=== PATIENT | female | born 1950 | race Caucasian/White ===

== ENCOUNTER 2018-10-13 18:54 | Observation (INO) ==
[2018-10-13] MEDS ORDERED: Ondansetron 4 MG/2 ML VIAL IVP ONE (18:56)
[2018-10-13] MEDS ORDERED: *HR* HYDROmorphone (PF) 1 MG/ML SYRINGE IVP ONE (18:56)
--- NOTE | 2018-10-13 18:58 | Emergency Department Note ---
Disposition Clinical Impression: History of fall, Inability to ambulate due to hip Head contusion Qualifiers: Encounter type: initial encounter Contusion of head detail: scalp Qualified Code(s): S00.03XA - Contusion of scalp, initial encounter Sprain of wrist, right Qualifiers: Encounter type: initial encounter Qualified Code(s): S63.501A - Unspecified sprain of right wrist, initial encounter Contusion of right hip Qualifiers: Encounter type: initial encounter Qualified Code(s): S70.01XA - Contusion of right hip, initial encounter Disposition: Admitted As Inpatient Condition: Fair Referrals: Surya Mueller DO [Primary Care Provider] - () Forms: ED Satisfaction Letter Time of Disposition: 20:50 Fall HPI - General Chief Complaint: ED Extremity Injury, Lower Stated Complaint: RT HIP PAIN/RT EYE PAIN S/P FALL Time Seen by Provider: 10/13/18 18:55 Source: patient, EMS Mode of arrival: EMS Limitations: no limitations Nursing Notes Reviewed: Yes Vital Signs Reviewed: Yes - History of Present Illness HPI Narrative: Patient relates she was Monday and a lump might banquet this evening when she stumbled and fell. Forward and caught herself on her right arm and landed on her right hip. She did hit her forehead and had a question of a couple seconds of loss of consciousness. Squad was called and she was transported on backboard for ease of motion. She denied any pain to her neck or back. They did apply a cervical collar. She is now to the hospital states she had some head pain but none previous. This is frontal. She denies visual changes, nausea or vomiting. She still denies any midline neck or back pain. She denies chest pain or shortness of breath or abdominal pain, nausea or vomiting. She has no pain or difficulty with motion of the upper extremities but has pain in the right wrist. She denies numbness or tingling to the fingers of the right hand or difficulty with motion of the digits. She has had pain in the right hip primarily. This was noted to be slightly externally rotated but not shortened by EMS. He motion of the right hip produces severe pain. She denies any pain to the knees or ankles. She denies previous hip injury. She states she has had both knees replaced. She denies any other reason for fall other than stumbling. She has not had history of syncope, seizure or any preceding chest pain or palpitations. Pt Subjective Complaint: fall Onset (ago): Just [employer] Fall From: standing Fall Witnessed: yes Loss of Consciousness: unsure, second(s) Prolonged Down Time?: no Symptoms Prior to Fall: none Context: tripped/slipped Location of injury: head Location of injury - extremities: Right: forearm, hip Severity: moderate Quality: dull, aching Associated symptoms (after fall): Reports: headache, unable to walk. Denies: neck pain, numbness, weakness, chest pain, shortness of breath, abdominal pain, hematuria, lightheaded, vertigo, confusion - Related Data Home Medications Medication Instructions Recorded Confirmed Lisinopril [Zestril] 10 mg PO DAILY 06/30/16 10/13/18 Aspirin [Adult Aspirin] 81 mg PO DAILY 10/13/18 10/13/18 Atorvastatin [Lipitor] 40 mg PO HS 10/13/18 10/13/18 Metformin HCl [Glucophage] 1,000 mg PO BID 10/13/18 10/13/18 Pioglitazone [Actos] 15 mg PO DAILY 10/13/18 10/13/18 glipiZIDE [Glipizide] 10 mg PO DAILY 10/13/18 10/13/18 hydroCHLOROthiazide 25 mg PO DAILY 10/13/18 10/13/18 [Hydrochlorothiazide] Previous Rx's Medication Instructions Recorded HYDROcodone/Acet 5/325 mg [[place] 1 tab PO Q6H PRN 2 Days #7 tab 10/13/18 5-325 mg] Naproxen [Naprosyn] 500 mg PO BID #14 tablet 10/13/18 Allergies Allergy/AdvReac Type Severity Reaction Status Date / Time secobarbital [From [place]] AdvReac Hives Verified 10/13/18 18:55 All systems ED: reviewed and negative except as stated. Fall PMH - Past Medical History Medical history: Reports: diabetes, hypertension Surgical history: Reports: , cholecystectomy, knee replacement (Bilateral total), orthopedic, other (Back surgery) Psychiatric history: Reports: no psych history - Social History Smoking Status: Never smoker Alcohol use: Reports: none Drug use: Reports: none Physical Exam - General Limitations: no limitations General appearance: alert, in no apparent distress - Head Head exam: other (Small contusion on the right side of the forehead.) - Eye Eye exam: Present: normal appearance, PERRL, EOMI. Absent: scleral icterus, conjunctival injection - ENT ENT exam: normal exam, normal oropharynx, mucous membranes moist, TM's normal bilaterally - Neck Neck exam: Present: normal inspection, full ROM, trachea midline, other (Collar has been removed with no pain on exam or pain with motion.). Absent: tenderness, lymphadenopathy - Chest Chest inspection: Present: normal inspection, symmetric chest wall rise - Respiratory Respiratory exam: Present: normal lung sounds bilaterally. Absent: respiratory distress, wheezes, prolonged expiratory phase - Cardiovascular Cardiovascular exam: Present: regular rate, normal rhythm, normal heart sounds. Absent: tachycardia - Abdominal Exam Abdominal exam: Present: soft, Non-Tender, normal bowel sounds. Absent: tenderness, distention, guarding, rebound, rigidity - Expanded Upper Extremity Exam Shoulder exam: Present: normal inspection, full ROM. Absent: tenderness, swelling Arm exam: Present: normal inspection, full ROM Elbow exam: Present: normal inspection, full ROM. Absent: tenderness, dislocation Forearm/Wrist exam: Present: other (Patient's right wrist has no evidence swelling but she has tenderness on compression at the wrist. She reports some soreness with motion of the wrist but she is moving it spontaneously.) Hand exam: Present: normal inspection, full ROM. Absent: tenderness, swelling Vascular exam: Normal: capillary refill, radial pulse - Expanded Lower Extremity Exam Hip/Pelvis exam: Present: tenderness (Lateral aspect of the right hip.), external rotation, pelvis stable. Absent: deformity, dislocation, shortening Knee exam: Present: normal inspection, full ROM, knee extension intact. Absent: tenderness, swelling Ankle exam: Present: normal inspection, full ROM. Absent: tenderness, swelling Foot/toe exam: Present: normal inspection, full ROM. Absent: tenderness, swelling Neurovascular/Tendon exam: Absent: motor deficit, sensory deficit, tendon defic it Gait: not tested/not observed - Back Exam Back exam: Present: normal inspection, full ROM. Absent: tenderness, CVA tenderness (R), CVA tenderness (L), vertebral tenderness - Neurological Exam Neurological exam: Present: alert, oriented X3, CN II-XII intact. Absent: motor sensory deficit - Psychiatric Psychiatric exam: Present: normal affect, normal mood - Skin Skin exam: Present: warm, dry, intact, normal color. Absent: diaphoresis, pallor Course Course Narrative: 1899: Patient was examined immediately upon arrival. She clinically has a likely right hip fracture. Given the fall with head contusion and possible loss of consciousness as well as possible impending surgery, CT head has been ordered. As she is in the scanner we will also obtain a CT across her pelvis. A preoperative chest x-ray and a right wrist film of been ordered. Labs for anticipated preoperative clearance and EKG have been ordered. IV will be established and Dilaudid and Zofran have been written for her pain. 2009: Pulmonary imaging results are discussed with the patient. I do not see that she has sustained an intracranial injury, wrist fracture or hip fracture. On reexamination she is improved with the fluids and pain medicine. I am now able to internally and externally rotate her like with only minor pain. She remains with pain on direct palpation over the lateral aspect of the right hip without other pain over the pelvis or pubic rami. She is developing more bruising from the right eyebrow onto the right upper eyelid. Patient is anxious to go home if the radiology readings concur with my own. She will need to rest, ice and have medicines for inflammation and pain. We are awaiting the official radiology readings at this time. 2019: With return of all imaging, care is discussed with the patient and family. She states that she is feeling better with the pain medicine is not think that she will need crutches. I advised her that we will have to see her sit, stand and walk and determine a safe way of getting her home prior to discharge. She is anxious to get home. 2029: The patient has been able to assist, rotate to a sitting position and stand and walk with assistance with significant difficulty. This is discussed with the patient and family and I do not feel confident that she will do well at home. She is willing to stay for observation to see if her pain and mobility will improve prior to discharge. 2041: Care has been discussed with Dr. Armstrong and he is given verbal orders for the patient's inpatient observation. Vital Signs Temperature 98.2 F 10/13/18 18:56 Pulse Rate 75 10/13/18 18:56 Respiratory Rate 20 10/13/18 18:56 Blood Pressure 141/63 10/13/18 18:56 O2 Sat by Pulse Oximetry 100 10/13/18 18:56 Temperature 98.2 F 10/13/18 18:56 Pulse Rate 78 10/13/18 20:00 Respiratory Rate 18 10/13/18 20:00 Blood Pressure 132/78 10/13/18 20:00 O2 Sat by Pulse Oximetry 98 10/13/18 20:00 Oxygen Delivery Oxygen Delivery Room Air Fall - Differential Diagnosis Likely: syncope, traumatic injury - Medical Records Medical records reviewed: Yes I reviewed the patient's medical records. - Lab Data Lab results reviewed: Yes I reviewed the patient's lab results. Result diagrams: 10/13/18 19:11 10/13/18 19:11 Lab Results 10/13/18 10/13/18 10/13/18 Range/Units 19:11 19:11 19:11 WBC 8.5 (4.3-11.1) K/mcL RBC 4.07 (3.82-4.97) M/mcL Hgb 12.0 (11.5-15.4) g/dL Hct 36.9 (35.3-44.9) % MCV 90.7 (83.0-100.0) fL MCH 29.5 (28.0-33.3) pg MCHC 32.5 (31.6-35.5) g/dL RDW 13.0 (11.5-14.5) % Plt Count 209 (140-400) K/mcL MPV 11.6 (9.4-12.4) fL Immature Gran % 0.4 (0-4) % Seg Neutrophils % 67.9 % Lymphocytes % 19.0 % Monocytes % 9.5 % Eosinophils % 2.6 % Basophils % 0.6 % Neutrophils # 5.8 (1.6-8.9) K/mcL Lymphocytes # 1.6 (0.6-4.6) K/mcL Monocytes # 0.8 (0.0-1.3) K/mcL Eosinophils # 0.2 (0.0-0.6) K/mcL Basophils # 0.1 (0.0-0.2) K/mcL PT 12.1 (9.4-12.1) Seconds INR 1.1 APTT 39.5 H (26.0-36.0) Seconds Sodium 138 (136-145) mEq/L Potassium 3.7 (3.5-5.1) mEq/L Chloride 102 (98-107) mEq/L Carbon Dioxide 26 (23-29) mEq/L BUN 27 H (8-23) mg/dL Creatinine 0.93 (0.60-1.20) mg/dL Est GFR ( Amer) > 60 (> 60) Est GFR (Non-Af Amer) 60 (> 60) BUN/Creatinine Ratio 29 H (6-26) Glucose 122 H (70-105) mg/dL Calculated Osmolality 292 (280-300) Calcium 9.4 (8.6-10.3) mg/dL Troponin I < 0.03 (< 0.04) ng/mL - Radiology Data Radiology results reviewed: Yes I reviewed the patient's radiology results. Single view chest x-ray is performed. This does not demonstrate evidence for i nfiltrate, effusion, pneumothorax, foreign body or heart failure. The cardiac silhouette is normal. I do not see abnormality to the osseous structures of the chest. This is on my interpretation. Three-view x-rays obtained of the right wrist. This does not demonstrate evidence for fracture, effusion or joint space misalignment. I do not see evidence for soft tissue foreign body or air. This is on my interpretation. CT head is performed. This is reviewed on bone and soft tissue windows. There is no evidence for acute intracranial bleed, shift, mass or edema. Mastoids and sinuses appear normal. There is no fracture evident. This is on my interpretation. CT is performed of the pelvis. This does not demonstrate evidence for pelvic, sacral or hip fracture on my interpretation. There is no posterior labral fracture or subluxation. No structural abnormality is seen to explain this patient's severe right hip pain with motion. This is on my interpretation. Impressions Chest X-Ray 10/13/18 18:56 IMPRESSION: 1. No acute pulmonary disease. 2. Calcific atherosclerosis aorta. 3. Cardiomegaly. D/ / David Jain / David Jain Interpreting Provider: David aJin Head CT 10/13/18 18:56 IMPRESSION: No acute intracranial abnormality. Right forehead scalp hematoma. No underlying fracture. D/ / Meli Brewer MD / Meli Brewer MD Interpreting Provider: Meli Brewer MD Pelvis CT 10/13/18 18:[address]: [address] evidence of acute osseous abnormality. 2. The degenerative changes lower lumbar spine and SI joints. 3. No CT evidence of acute intrapelvic process. D/ / David Jain / David Jain Interpreting Provider: David Jain Wrist X-Ray 10/13/18 18:56 IMPRESSION: 1. No acute osseous abnormality of the right wrist. 2. No soft tissue injury identified. D/ / Meli Brewer MD / Meli Brewer MD Interpreting Provider: Meli Brewer MD - EKG Data EKG attestation: Yes I reviewed and interpreted this EKG. EKG shows normal: sinus rhythm, axis, intervals, QRS complexes, ST-T waves Rate: normal (73) Interpretation: no acute changes, normal EKG
[2018-10-13] MEDS ORDERED: 0.9 % Sodium Chloride 1,000 ML IVC SCH (19:00)
[2018-10-13 19:17] LABS: Basophils # 0.1 K/mcL (0.0-0.2); Basophils % 0.6 %; Eosinophils # 0.2 K/mcL (0.0-0.6); Eosinophils % 2.6 %; Hematocrit 36.9 % (35.3-44.9); Immature Granulocytes % 0.4 % (0-4); Lymphocytes # 1.6 K/mcL (0.6-4.6); Mean Corpuscular HGB Conc 32.5 g/dL (31.6-35.5); Mean Corpuscular Hemoglobin 29.5 pg (28.0-33.3); Mean Corpuscular Volume 90.7 fL (83.0-100.0); Mean Platelet Volume 11.6 fL (9.4-12.4); Monocytes # 0.8 K/mcL (0.0-1.3); Monocytes % 9.5 %; Neutrophils # 5.8 K/mcL (1.6-8.9); Platelet Count 209 K/mcL (140-400); Red Blood Count 4.07 M/mcL (3.82-4.97); Segmented Neutrophils % 67.9 %; White Blood Count 8.5 K/mcL (4.3-11.1)
[2018-10-13 19:25] LABS: INR 1.1; Prothrombin Time 12.1 Seconds (9.4-12.1)
[2018-10-13 19:28] LABS: Activated Partial Thrombo Time 39.5 Seconds (26.0-36.0)
[2018-10-13 19:38] LABS: Troponin I < 0.03 ng/mL (< 0.04)
[2018-10-13 19:39] LABS: BUN/Creatinine Ratio 29 (6-26); Blood Urea Nitrogen 27 mg/dL (8-23); Calcium 9.4 mg/dL (8.6-10.3); Carbon Dioxide 26 mEq/L (23-29); Chloride 102 mEq/L (98-107); Glucose 122 mg/dL (70-105); Osmolality,Calculated 292 (280-300); Potassium 3.7 mEq/L (3.5-5.1); Sodium 138 mEq/L (136-145); eGFR For African Americans > 60 (> 60); eGFR For Non-African Americans 60 (> 60)
[2018-10-13] MEDS ORDERED: MOM Conc 10 ML UD.LIQ PO PRN (21:55)
[2018-10-13] MEDS ORDERED: *HR* Dextrose 50 % in Water (Syg) 50 ML SYRINGE IVP PRN (21:55)
[2018-10-13] MEDS ORDERED: Ibuprofen 400 MG TABLET PO PRN (21:55)
[2018-10-13] MEDS ORDERED: Mag Hydrox/Al Hydrox/Simeth 30 ML UDC PO PRN (21:55)
[2018-10-13] MEDS ORDERED: Naloxone 0.4 MG/ML INJ IVP PRN (21:55)
[2018-10-13] MEDS ORDERED: *HR* HYDROcodone/Acet 5/325 mg TABLET PO PRN (21:55)
[2018-10-13] MEDS ORDERED: D5% in Water 1,000 ML IVC PRN (21:55)
[2018-10-13] MEDS ORDERED: Ondansetron ODT 4 MG TAB.RAPDIS SL PRN (21:55)
[2018-10-13] MEDS ORDERED: Dextrose Gel 15 GM/37.5 ML TUBE PO PRN ×2 (21:55)
[2018-10-13] MEDS ORDERED: Acetaminophen 325 MG TABLET PO PRN (21:55)
[2018-10-13] MEDS: *HR* Metformin 500 MG TABLET PO SCH (22:33)
[2018-10-13] MEDS: 0.9 % Sodium Chloride 1,000 ML IVC SCH (22:47)
[2018-10-14] MEDS: 0.9 % Sodium Chloride 1,000 ML IVC SCH (06:34)
[2018-10-14] MEDS ORDERED: *HR* GlipiZIDE XL (24 HR) 10 MG TABLET PO SCH (08:00)
[2018-10-14] MEDS: *HR* Metformin 500 MG TABLET PO SCH (08:56)
[2018-10-14] MEDS: Insulin LISPRO 300 UNITS/3 ML VIAL SQ SCH ×2 (08:57→11:56)
[2018-10-14] MEDS ORDERED: hydroCHLOROthiazide 25 MG TABLET PO SCH (09:00)
[2018-10-14] MEDS ORDERED: Aspirin Enteric Coated 81 MG Tablet PO SCH (09:00)
[2018-10-14] MEDS ORDERED: *HR* Pioglitazone 15 MG TABLET PO SCH (09:00)
[2018-10-14 11:25] VITALS: BP 112/60
--- NOTE | 2018-10-14 12:52 | Internal Med History&Physical ---
Date of Encounter: 10/14/18 Time of Encounter: 12:25 Assessment and Plan (1) Head contusion Current visit: Yes Status: Acute She states her pain level has decreased and she feels stable for discharge home. Qualifiers: Encounter type: initial encounter Contusion of head detail: scalp Qualified Code(s): S00.03XA - Contusion of scalp, initial encounter (2) Sprain of wrist, right Current visit: Yes Status: Acute As above Qualifiers: Encounter type: initial encounter Qualified Code(s): S63.501A - Unspecified sprain of right wrist, initial encounter (3) Contusion of right hip Current visit: Yes Status: Acute As above Qualifiers: Encounter type: initial encounter Qualified Code(s): S70.01XA - Contusion of right hip, initial encounter (4) Azotemia Current visit: Yes Status: Chronic Review of archived labs show 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 I told her she should avoid NSAIDs. Her PCP can monitor and do further workup as needed. Internal Medicine - H&P: HPI Chief complaint: Fall with head contusion Admitted From: Emergency Dept Plans for Post Hospital Care: Home History of present illness: Ms. 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 She was unable to catch herself with arms and states her head hit the floor first. She thinks there was very transient LOC. She was brought to emergency room and evaluated. No fractures were seen on x-rays but she had significant pain and felt she should not be discharged home from ER. She was admitted to [facility] for overnight observation and ongoing care needs. She denies any sensation of imbalance or weakness prior to tripping and falling. She states she feels stable now for discharge home. Past Med Surg Social Fam HX - Past Medical History Medical history: diabetes, hyperlipidemia, hypertension Additional medical history: TYPE 2 DM, Psychiatric history: no psych history - Past Surgical History Surgical History: , cholecystectomy, knee replacement, orthopedic, other Additional surgical history: back surgery. bilat knees - Social History Smoking Status: Never smoker Smokeless Tobacco Status: No Alcohol use: none Drug use: none - Family History Mother Living Status: Age at : 76 Hx Family Cardiac Disorders: Yes Hx Family Cancer: Yes (lung) Internal Medicine - H&P: Meds Lisinopril [Zestril] 10 mg PO DAILY 06/30/16 [History] Aspirin [Adult Aspirin] 81 mg PO DAILY 10/13/18 [History] Atorvastatin [Lipitor] 40 mg PO HS 10/13/18 [History] HYDROcodone/Acet 5/325 mg [[place] 5-325 mg] 1 tab PO Q6H PRN 2 Days #7 tab 10/13/18 [Rx] Metformin HCl [Glucophage] 1,000 mg PO BID 10/13/18 [History] Naproxen [Naprosyn] 500 mg PO BID #14 tablet 10/13/18 [Rx] Pioglitazone [Actos] 15 mg PO DAILY 10/13/18 [History] glipiZIDE [Glipizide] 10 mg PO DAILY 10/13/18 [History] hydroCHLOROthiazide [Hydrochlorothiazide] 25 mg PO DAILY 10/13/18 [History] Allergy/AdvReac Type Severity Reaction Status Date / Time secobarbital [From [place]] AdvReac Hives Verified 10/13/18 18:55 All Systems PM: A 10-system review of systems was performed and is negative for pertinent findings except as documented above in the HPI. Review of systems: Gen.: She states her weight has decreased approximately 16 pounds in the past year, intentionally Cardiovascular: She has history of hypertension but denies OH heart failure angina DVT or pulmonary embolus Respiratory: She is a lifelong nonsmoker and denies chronic lung disease GI: She has had cholecystectomy. She denies disorders of her liver gallbladder or exocrine pancreas : She denies hematuria dysuria or kidney stones. She denies known chronic kidney disease. Neurologic: She denies large distribution strokes or seizures. Endocrine: She was diagnosed with DM 2 approximately 2009. She has hyperlipidemia but denies thyroid disease Hematology/oncology: She denies blood disorders cancers or anemia Psychiatric: She denies anxiety depression or other mental health issues [place] skeletal: She had bilateral knee replacements approximately 2010 and 2014. She has DJD. She had lumbar fusion surgery in the past but does not recall specific details. She denies gout or other bone joint or muscle disorders. - Constitutional Vitals: Temp Pulse Resp BP Pulse Ox 98.3 F 72 18 112/60 98 10/14/18 11:23 10/14/18 11:23 10/14/18 11:23 10/14/18 11:23 10/14/18 11:23 Exam: Gen.: She is a well-developed overweight female resting comfortably in bed who appears in no acute distress HEENT: She has significant ecchymosis involving the right orbital region with edema of the upper eyelid and eyebrow area. No lacerations are seen. Head is otherwise atraumatic and normal cephalic. Eyes: EOMI. There is no scleral icterus. Mouth: Mucosa is moist. Neck: Supple and nontender. There is no thyromegaly or adenopathy noted. Heart: Regular without murmurs gallops or ectopics Lungs: No wheezes or crackles are heard. Abdomen: Soft and nontender. No masses or guarding are noted. Extremities: There is no cyanosis edema or clubbing noted. Dorsalis pedis and posterior tibial pulses are 1-2 over 2 bilaterally. Neurologic: Mental status: She is talkative and a good historian. Cranial nerves: Smile is symmetric. Forehead wrinkles bilaterally. Tongue protrudes midline. EOMI. Motor: There is no pronator drift. Cerebellar: Finger to nose is intact bilaterally. Skin: Warm and dry Internal Med - H&P Results - Labs CBC & Chem 7: 10/13/18 19:11 10/13/18 19:11 Labs: Short CBC 10/13/18 Range/Units 19:11 WBC 8.5 (4.3-11.1) K/mcL Hgb 12.0 (11.5-15.4) g/dL Hct 36.9 (35.3-44.9) % Plt Count 209 (140-400) K/mcL Neutrophils # 5.8 (1.6-8.9) K/mcL BMP 10/13/18 19:11 Sodium 138 Potassium 3.7 Chloride 102 Carbon Dioxide 26 BUN 27 H Creatinine 0.93 Glucose 122 H Calcium 9.4 Cardiac Enzymes 10/13/18 Range/Units 19:11 Troponin I < 0.03 (< 0.04) ng/mL - Impressions ITS Impressions Chest X-Ray 10/13/18 18:56 IMPRESSION: 1. No acute pulmonary disease. 2. Calcific atherosclerosis aorta. 3. Cardiomegaly. D/ / David Calendine / David Calendine Interpreting Provider: David Jain Head CT 10/13/18 18:56 IMPRESSION: No acute intracranial abnormality. Right forehead scalp hematoma. No underlying fracture. D/ / 10/13/2018 20:16:07 Meli Brewer MD / [facility] Interpreting Provider: Meli Brewer MD Pelvis CT 10/13/18 18:[address]: [address] evidence of acute osseous abnormality. 2. The degenerative changes lower lumbar spine and SI joints. 3. No CT evidence of acute intrapelvic process. D/ / David Calendine / David Calendine Interpreting Provider: David Jain Wrist X-Ray 10/13/18 18:56 IMPRESSION: 1. No acute osseous abnormality of the right wrist. 2. No soft tissue injury identified. D/ / Meli Brewer MD / Meli Brewer MD Interpreting Provider: Meli Brewer MD
--- NOTE | 2018-10-14 13:04 | Discharge Summary ---
Date of Encounter: 10/14/18 Time of Encounter: 12:25 - Discharge Diagnosis (1) Head contusion Priority: Primary Status: Acute Qualifiers: Encounter type: initial encounter Contusion of head detail: scalp Qualified Code(s): S00.03XA - Contusion of scalp, initial encounter (2) Sprain of wrist, right Priority: Secondary Status: Acute Qualifiers: Encounter type: initial encounter Qualified Code(s): S63.501A - Unspecified sprain of right wrist, initial encounter (3) Contusion of right hip Priority: Secondary Status: Acute Qualifiers: Encounter type: initial encounter Qualified Code(s): S70.01XA - Contusion of right hip, initial encounter (4) Azotemia Priority: Secondary Status: Chronic Hospital course: Ms. 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 She was unable to catch herself with arms and states her head hit the floor first. She thinks there was very transient LOC. She was brought to emergency room and evaluated. No fractures were seen on x-rays but she had significant pain and felt she should not be discharged home from ER. She was admitted to [facility] for overnight observation and ongoing care needs. Initial orders were written by the emergency room physician. I saw her on October 14 and performed a history and physical. Analgesics were given. Regular home medications were continued. When I saw her she stated she had decreased pain and felt stable for discharge home. She will follow with her PCP Dr. Mueller within 1 week. She will avoid NSAIDs and use OTC Tylenol as needed for pain. - Time Spent with Patient Total time spent providing and/or coordinating discharge services: - Discharge Medications Prescriptions: New HYDROcodone/Acet 5/325 mg [[place] 5-325 mg] 1 tab PO Q6H PRN 2 Days #7 tab PRN Reason: Pain Continued Lisinopril [Zestril] 10 mg PO DAILY Atorvastatin [Lipitor] 40 mg PO HS hydroCHLOROthiazide [Hydrochlorothiazide] 25 mg PO DAILY Pioglitazone [Actos] 15 mg PO DAILY Metformin HCl [Glucophage] 1,000 mg PO BID glipiZIDE [Glipizide] 10 mg PO DAILY Aspirin [Adult Aspirin] 81 mg PO DAILY Home Medications: Lisinopril [Zestril] 10 mg PO DAILY 06/30/16 [History] Aspirin [Adult Aspirin] 81 mg PO DAILY 10/13/18 [History] Atorvastatin [Lipitor] 40 mg PO HS 10/13/18 [History] HYDROcodone/Acet 5/325 mg [[place] 5-325 mg] 1 tab PO Q6H PRN 2 Days #7 tab 10/13/18 [Rx] Metformin HCl [Glucophage] 1,000 mg PO BID 10/13/18 [History] Pioglitazone [Actos] 15 mg PO DAILY 10/13/18 [History] glipiZIDE [Glipizide] 10 mg PO DAILY 10/13/18 [History] hydroCHLOROthiazide [Hydrochlorothiazide] 25 mg PO DAILY 10/13/18 [History] Allergies/Adverse Reactions: Allergy/AdvReac Type Severity Reaction Status Date / Time secobarbital [From [place]] AdvReac Hives Verified 10/13/18 18:55 Date of admission: 10/13/18 20:56 Primary care physician: Surya Mueller DO - Constitutional Vitals: Temp Pulse Resp BP Pulse Ox 98.3 F 72 18 112/60 98 10/14/18 11:23 10/14/18 11:23 10/14/18 11:23 10/14/18 11:23 10/14/18 11:23 - Patient Status Disposition: Home, Self-Care Condition: Fair - Discharge Instructions Follow Up With: Surya Mueller DO [Primary Care Provider] - 1 week - Diet and Activity Activity: resume usual activities as tolerated Diet: diabetic diet
--- NOTE | 2018-10-15 08:56 | Electrocardiograph Report ---
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
== END 2018-10-14 14:34 | disposition home or self-care (01) ==
LOC: INPPIK 18:54 → EMEROOPIK 18:54 → INPPIK 21:30
PROVIDERS: ADMIT Internal Medicine; ATTEND Internal Medicine